=== PATIENT | female | born 1950 | race Caucasian/White ===

== ENCOUNTER 2019-12-14 12:59 | Outpatient (CLI) | payer MEDICARE ==
--- NOTE | 2019-12-14 14:02 | BD ---
EXAM: DEXA bone density examination HISTORY: 69-year-old postmenopausal female for screening COMPARISON: None FINDINGS: L1--bone mineral density 1.171 g/sq cm; T score 1.6 L2--bone mineral density 1.238 g/sq cm; T score 1.9 L3--bone mineral density 1.272 g/sq cm; T score 1.7 L4--bone mineral density 1.367 g/sq cm; T score 2.8 Total L1-L4--bone mineral density 1.267 g/sq cm; T score 2.0 Left femoral neck--bone mineral density0.810; T score -0.4 Total proximal left femur--bone mineral density 1.090; T score 1.2 IMPRESSION: Normal bone density.
--- NOTE | 2019-12-23 09:16 | MMO ---
Bilateral MAMMO Bilat Screen [facility]. CLINICAL HISTORY: Patient is 69 years old and is seen for screening. The patient has the following family history of breast cancer: cousin female, MATERNAL. The patient has no personal history of cancer. VIEWS: The views performed were: bilateral craniocaudal with tomosynthesis and bilateral mediolateral oblique with tomosynthesis. FILMS COMPARED: The present examination has been compared to a prior imaging study performed at [facility] on 07/29/2018. This study has been interpreted with the assistance of computer-aided detection. MAMMOGRAM FINDINGS: There are scattered fibroglandular densities. There are benign appearing calcifications seen in both breasts. There are no suspicious masses, suspicious calcifications, or new areas of architectural distortion. IMPRESSION: THERE IS NO MAMMOGRAPHIC EVIDENCE OF MALIGNANCY. A ROUTINE FOLLOW-UP MAMMOGRAM IN 1 YEAR IS RECOMMENDED. THE RESULTS OF THIS EXAM WERE SENT TO THE PATIENT. ACR BI-RADS Category 2 - Benign finding MAMMOGRAPHY NOTE: 1. A negative mammogram report should not delay a biopsy if a dominant of clinically suspicious mass is present. 2. Approximately 10% to 15% of breast cancers are not detected by mammography. 3. Adenosis and dense breasts may obscure an underlying neoplasm. Reported by: STAR CHOI MD Electonically Signed: [id number]
== END 2019-12-14 13:00 | disposition home or self-care (01) ==
LOC: BICMAMMO 12:59
PROVIDERS: ATTEND Internal Medicine
DX: Z12.31 Encounter for screening mammogram for malignant neoplasm of breast (principal); Z13.820 Encounter for screening for osteoporosis; Z78.0 Asymptomatic menopausal state; Z80.3 Family history of malignant neoplasm of breast
CPT/HCPCS: 77063; 77067; 77080

== ENCOUNTER 2020-01-16 12:26 | Outpatient (CLI) | payer MEDICARE, OTHER ==
[2020-01-17 11:06] LABS: SARS-CoV-2 MS2 Positive; SARS-CoV-2 N Gene Negative; SARS-CoV-2 S Gene Negative; SARS-CoV-2 by NAA Not Detected (NotDetected); SARS-CoV-2 orf1ab Negative
== END 2020-01-16 12:27 | disposition home or self-care (01) ==
LOC: LABBT 12:26
PROVIDERS: ATTEND Internal Medicine
DX: Z20.828 Contact with and (suspected) exposure to other viral communicable diseases (principal)
CPT/HCPCS: 87635; U0003

== ENCOUNTER 2020-01-19 19:30 | Outpatient (CLI) | payer MEDICARE | END 2020-01-19 19:31 | disposition home or self-care (01) | LOC: SLEEPLAB 19:30 | PROVIDERS: ATTEND Internal Medicine | DX: G47.33 Obstructive sleep apnea (adult) (pediatric) (principal); I10 Essential (primary) hypertension; R06.83 Snoring; G47.00 Insomnia, unspecified; G47.10 Hypersomnia, unspecified; F32.9 Major depressive disorder, single episode, unspecified | CPT/HCPCS: 95811 ==

== ENCOUNTER 2021-10-15 08:26 | Outpatient (CLI) | payer MEDICARE | END 2021-10-15 08:27 | disposition home or self-care (01) | LOC: RAD 08:26 | PROVIDERS: ATTEND Surgery | DX: K21.9 Gastro-esophageal reflux disease without esophagitis (principal); K22.4 Dyskinesia of esophagus | CPT/HCPCS: 74220 ==

== ENCOUNTER 2021-10-16 13:22 | Outpatient (CLI) | payer MEDICARE | END 2021-10-16 13:23 | disposition home or self-care (01) | LOC: DTY/OP 13:22 | PROVIDERS: ATTEND Surgery | DX: E66.01 Morbid (severe) obesity due to excess calories (principal) | CPT/HCPCS: 97802 ==

== ENCOUNTER 2021-11-07 11:15 | Inpatient (IN) | payer MEDICARE ==
[2021-11-12] MEDS ORDERED: Heparin 5,000 UNITS/ML VIAL ONE (07:34)
[2021-11-12] MEDS ORDERED: Bupivacaine/Epinephrine 0.25% 30 ML VIAL ONE (08:07)
[2021-11-12] MEDS ORDERED: Ketamine 50 MG/ML (10ML VIAL) ONE (09:02)
[2021-11-12] MEDS ORDERED: SUGAMMADEX SODIUM 200 MG/2 ML VIAL ONE (09:02)
[2021-11-12] MEDS ORDERED: fentaNYL Citrate/PF 100 MCG/2 ML SYRINGE ONE (09:02)
[2021-11-12] MEDS ORDERED: CEFAZOLIN 2 GM VIAL ONE (09:16)
[2021-11-12] MEDS ORDERED: Sodium Chloride 0.9% 100 ML ONE (09:16)
[2021-11-12] MEDS ORDERED: Neostigmine Methylsulfate 3 MG/3 ML SYRINGE ONE (09:30)
[2021-11-12] MEDS ORDERED: Dexamethasone 20 MG/5 ML VIAL ONE (09:30)
[2021-11-12] MEDS ORDERED: Lidocaine 1% PF 5 ML VIAL ONE (09:30)
[2021-11-12] MEDS ORDERED: ePHEDrine 50 MG/ML VIAL ONE (09:30)
[2021-11-12] MEDS ORDERED: PROPOFOL 200 MG/20 ML VIAL ONE (09:30)
[2021-11-12] MEDS ORDERED: Ondansetron PF 4 MG/2 ML Vial ONE (09:30)
[2021-11-12] MEDS ORDERED: Rocuronium Bromide 10 MG/ML (10ML VIAL) ONE (09:30)
[2021-11-12] MEDS ORDERED: Glycopyrrolate 0.2 MG/ML 5 ML SYRINGE ONE (09:30)
[2021-11-12] MEDS ORDERED: diphenhydrAMINE 50 MG/ML VIAL IM PRN (09:57)
[2021-11-12] MEDS ORDERED: fentaNYL Citrate/PF 2,000 MCG in Sodium Chloride 0.9% 60 ML IV PRN (09:57)
[2021-11-12] MEDS ORDERED: Promethazine HCl 25 MG/ML VIAL IM PRN ×3 (09:57→14:27)
[2021-11-12] MEDS ORDERED: Ondansetron HCl/PF 4 MG/2 ML Vial IVP PRN (09:57)
[2021-11-12] MEDS ORDERED: diphenhydrAMINE 25 MG CAP PO PRN (09:57)
[2021-11-12] MEDS ORDERED: Promethazine HCl 25 MG/ML VIAL IVPB PRN (09:57)
[2021-11-12] MEDS ORDERED: Naloxone HCl 0.4 mg/ml Vial IV PRN (09:57)
[2021-11-12] MEDS ORDERED: diphenhydrAMINE 50 MG/ML VIAL IVP PRN ×2 (09:57→14:27)
[2021-11-12] MEDS ORDERED: Communication Order-Pharmacy FS SCH (10:00)
[2021-11-12] MEDS ORDERED: Fentanyl 100 MCG/2 ML VIAL ONE (11:42)
[2021-11-12] MEDS ORDERED: Promethazine HCl 25 MG/ML VIAL ONE (13:25)
[2021-11-12] MEDS ORDERED: Dextrose 5% in Water 1,000 ML IV PRN (14:27)
[2021-11-12] MEDS ORDERED: Hydrocodone-Acetamin 15 ML UDCUP PO PRN (14:27)
[2021-11-12] MEDS ORDERED: hydrALAZINE 20 MG/ML VIAL SLOW IVP PRN (14:27)
[2021-11-12] MEDS ORDERED: Dextrose 50% Abboject 50 ML SYRINGE SLOW IVP PRN (14:27)
[2021-11-12] MEDS ORDERED: Ondansetron PF 4 MG/2 ML Vial IVP PRN (14:27)
[2021-11-12 14:48] VITALS: BMI 43.4
[2021-11-12] MEDS: D5 1/2 NS w/20 mEq KCL 1,000 ML IV SCH ×2 (15:31→23:10)
[2021-11-12] MEDS: Ondansetron PF 4 MG/2 ML Vial IVP PRN (17:36)
[2021-11-12 19:38] LABS: Troponin I 0.012 ng/mL (< 0.028)
[2021-11-13] MEDS: Ondansetron PF 4 MG/2 ML Vial IVP PRN (01:31)
[2021-11-13 04:26] LABS: #Lymphocytes 1.4 thou/uL (1.20-3.40); #Neutrophils 10.2 thou/uL (1.40-6.50); %Basophils 0.1 % (0.0-1.0); %Lymphocytes 11.2 % (21.0-51.0); %Monocytes 7.5 % (0.0-10.0); %Neutrophils 81.1 % (42.0-75.0); Hemoglobin 13.9 g/dL (12.0-16.0); Mean Corpuscular HGB CONC 34.4 g/dL (32.0-36.0); Mean Corpuscular Hemoglobin 30.7 pg (27.0-31.0); Mean Corpuscular Volume 89.3 fL (78.0-98.0); Mean Platelet Volume 7.1 fL (7.4-10.4); Platelet Count 290 thou/uL (130-400); RBC Distribution Width 12.6 % (11.5-14.5); Red Blood Cell (RBC) Count 4.52 mill/uL (4.20-5.40); White Blood Cell (WBC) Count 12.5 thou/uL (4.8-10.8)
[2021-11-13 04:50] LABS: Anion Gap 14 mmol/L (10-20); BUN (Urea Nitrogen) 8 mg/dL (9.8-20.1); Calc. Creatinine Clearance 129 mL/min (70-130); Calcium 9.3 mg/dL (7.8-10.44); Carbon Dioxide 27 mmol/L (23-31); Chloride 101 mmol/L (98-107); Estimated GFR 75; Glucose 129 mg/dL (80-115); Potassium 3.8 mmol/L (3.5-5.1); Sodium 138 mmol/L (136-145)
[2021-11-13 04:54] LABS: Troponin I 0.066 ng/mL (< 0.028)
[2021-11-13] MEDS: D5 1/2 NS w/20 mEq KCL 1,000 ML IV SCH ×3 (06:36→16:50)
[2021-11-13] MEDS: Levothyroxine Sodium 25 MCG TAB PO SCH (08:35)
[2021-11-13] MEDS: Enoxaparin Sodium 40 MG/0.4 ML SYRINGE SC SCH (08:35)
[2021-11-13] MEDS: Pantoprazole 40 MG VIAL IVP SCH (08:35)
[2021-11-13] MEDS: Venlafaxine HCl XR 75 MG CAP PO SCH (09:39)
[2021-11-13 10:24] LABS: Troponin I 0.067 ng/mL (< 0.028)
[2021-11-13] MEDS ORDERED: Hydrocodone-Acetamin 15 ML UDCUP PO PRN (15:06)
[2021-11-13] MEDS ORDERED: Acetaminophen 650 MG/20.3 ML UDCUP PO PRN (15:07)
[2021-11-13] MEDS ORDERED: Fentanyl 100 MCG/2 ML VIAL SLOW IVP PRN (15:07)
[2021-11-14] MEDS: D5 1/2 NS w/20 mEq KCL 1,000 ML IV SCH (07:38)
[2021-11-14 08:02] VITALS: BP 169/86; TEMP 98.5
[2021-11-14] MEDS: Enoxaparin Sodium 40 MG/0.4 ML SYRINGE SC SCH (08:23)
[2021-11-14] MEDS: Venlafaxine HCl XR 75 MG CAP PO SCH (08:23)
[2021-11-14] MEDS: Levothyroxine Sodium 25 MCG TAB PO SCH (08:23)
[2021-11-14] MEDS: Pantoprazole 40 MG VIAL IVP SCH (08:23)
== END 2021-11-14 10:23 | disposition home or self-care (01) | DRG 621 ==
LOC: SURG A 11-12 07:10 → 2NO 11-12 13:54
PROVIDERS: ADMIT Surgery; ATTEND Surgery
PROC: 0DB64Z3 Excision of Stomach, Percutaneous Endoscopic Approach, Vertical (ICD-10-PCS; principal; 2021-11-12)
PROC: 8E0W4CZ Robotic Assisted Procedure of Trunk Region, Percutaneous Endoscopic Approach (ICD-10-PCS; 2021-11-12)
DX: E66.01 Morbid (severe) obesity due to excess calories (principal); Z20.822 Contact with and (suspected) exposure to COVID-19; R00.1 Bradycardia, unspecified; Z68.41 Body mass index [BMI] 40.0-44.9, adult; I49.1 Atrial premature depolarization; G47.33 Obstructive sleep apnea (adult) (pediatric); I44.1 Atrioventricular block, second degree; F32.A Depression, unspecified; M19.90 Unspecified osteoarthritis, unspecified site; I10 Essential (primary) hypertension; K21.9 Gastro-esophageal reflux disease without esophagitis; E78.00 Pure hypercholesterolemia, unspecified; L40.9 Psoriasis, unspecified; M10.9 Gout, unspecified; Z90.49 Acquired absence of other specified parts of digestive tract; Z79.890 Hormone replacement therapy; Z79.899 Other long term (current) drug therapy; Z79.82 Long term (current) use of aspirin; Z82.49 Family history of ischemic heart disease and other diseases of the circulatory system; Z82.3 Family history of stroke
CPT/HCPCS: 36415; 80048; 84484; 85025; 88307; 93005; 93010; C9113; J0690; J1100; J1644; J1650; J2405; J2550; J2704; J3010; J3480; J3490

== ENCOUNTER 2021-11-07 15:56 | Outpatient (CLI) | payer MEDICARE ==
[2021-11-07 17:13] LABS: #Basophils 0.1 10x3/uL (0.0-0.2); #Eosinphils 0.1 10x3/uL (0.0-0.5); #Monocytes 0.6 10x3/uL (0.0-1.1); #Neutrophils 5.9 10x3/uL (1.5-8.4); %Basophils 0.7 % (0.0-2.0); %Eosinophils 0.9 % (0.0-6.0); %Lymphocytes 24.1 % (18.0-47.0); %Monocytes 7.2 % (0.0-10.0); %Neutrophils 66.8 % (40.0-75.0); Hemoglobin 14.9 g/dL (12.0-15.5); Mean Corpuscular HGB CONC 34.4 g/dL (32.0-36.0); Mean Corpuscular Hemoglobin 30.1 pg (27.0-33.0); Mean Corpuscular Volume 87.5 fl (81.6-98.3); Mean Platelet Volume 9.3 fl (7.4-10.4); Platelet Count 340 10x3/uL (150-450); RBC Distribution Width 13.6 % (11.5-14.5); Red Blood Cell (RBC) Count 4.95 10x6/uL (3.90-5.03); White Blood Cell (WBC) Count 8.8 10x3/uL (3.5-10.5)
[2021-11-07 17:31] LABS: Anion Gap 16 mmol/L (10-20); BUN (Urea Nitrogen) 23 mg/dL (9.8-20.1); Calc. Creatinine Clearance 0 mL/min (70-130); Carbon Dioxide 25 mmol/L (23-31); Chloride 104 mmol/L (98-107); Potassium 3.6 mmol/L (3.5-5.1); Sodium 141 mmol/L (136-145)
[2021-11-07 17:32] LABS: ALT (SGPT) 32 U/L (8-55); AST (SGOT) 28 U/L (5-34); Albumin 4.6 g/dL (3.4-4.8); Alkaline Phosphatase 87 U/L (40-110); Calcium 10.4 mg/dL (7.8-10.44); Estimated GFR 52; Globulin 2.9 g/dL (2.4-3.5); Glucose 99 mg/dL (80-115); Protein, Total 7.5 g/dL (5.8-8.1)
[2021-11-07 22:50] LABS: Hemoglobin A1c 5.1 % (4.0-6.0)
== END 2021-11-07 15:57 | disposition home or self-care (01) ==
LOC: LABBT 15:56
PROVIDERS: ATTEND Surgery
DX: Z01.818 Encounter for other preprocedural examination (principal); E66.01 Morbid (severe) obesity due to excess calories; Z20.822 Contact with and (suspected) exposure to COVID-19
CPT/HCPCS: 71046; 80053; 83036; 85025; 87811

== ENCOUNTER 2021-11-27 10:05 | Day surgery (SDC) | payer MEDICARE ==
[2021-11-27] MEDS ORDERED: Ondansetron PF 4 MG/2 ML Vial IVP PRN (10:09)
[2021-11-27] MEDS ORDERED: Sodium Chloride 0.9% 1,000 ML IV SCH (10:15)
[2021-11-27] MEDS ORDERED: Thiamine HCl 100 MG, Multivitamins, Adult 10 ML in Sodium Chloride 0.9% 1,000 ML IVPB SCH (10:15)
[2021-11-27 10:57] VITALS: BP 109/60; TEMP 97.7
== END 2021-11-27 16:34 | disposition home or self-care (01) ==
LOC: ONC/OP 10:05
PROVIDERS: ATTEND Surgery
DX: E86.0 Dehydration (principal)
CPT/HCPCS: 96361; 96365; 96366; J3411; J7050

== ENCOUNTER 2022-03-06 08:44 | Outpatient (CLI) | payer MEDICARE | END 2022-03-06 08:45 | disposition home or self-care (01) | LOC: BICMAMMO 08:44 | PROVIDERS: ATTEND Internal Medicine | DX: Z12.31 Encounter for screening mammogram for malignant neoplasm of breast (principal); Z80.3 Family history of malignant neoplasm of breast | CPT/HCPCS: 77063; 77067 ==

== ENCOUNTER 2024-04-22 13:20 | Outpatient (CLI) | payer MEDICARE, OTHER | END 2024-04-22 13:21 | disposition home or self-care (01) | LOC: BICMAMMO 13:20 | PROVIDERS: ATTEND Internal Medicine | DX: Z12.31 Encounter for screening mammogram for malignant neoplasm of breast (principal); Z80.3 Family history of malignant neoplasm of breast | CPT/HCPCS: 77063; 77067 ==